=== PATIENT | male | born 1960 | race Caucasian/White ===

== ENCOUNTER 2019-01-13 15:04 | Emergency (ER) | payer OTHER ==
[2019-01-13] MEDS ORDERED: Ketorolac 60 MG/2 ML SDV IM ONE (15:47)
[2019-01-13] MEDS ORDERED: Cyclobenzaprine 10 MG Tab PO ONE (15:47)
--- NOTE | 2019-01-13 15:49 | EDM.PDOC ---
ED HPI GENERAL MEDICAL PROBLEM - General Chief Complaint: Back Pain or Injury Stated Complaint: BACK PAIN Time Seen by Provider: 01/13/19 15:45 Source of Information: Reports: Patient, Family, RN Notes Reviewed History Limitations: Reports: No Limitations - History of Present Illness INITIAL COMMENTS - FREE TEXT/NARRATIVE: 58-year-old gentleman presents to the emergency department today complaint of low back pain. He states he injured himself when he was moving furniture 2 days prior he has not tried any medications just use ice eating pad and of rib belt. Denies any loss of bowel or bladder no numbness and tingling in his predominantly on the right side - Related Data Allergies Allergy/AdvReac Type Severity Reaction Status Date / Time No Known Allergies Allergy Verified 01/13/19 15:29 Home Meds: Home Meds NK [No Known Home Meds] 01/13/19 [History] Past Medical History - Past Health History Medical/Surgical History: Denies Medical/Surgical History Social & Family History - Tobacco Use Smoking Status *Q: Current Every Day Smoker Years of Tobacco use: 40 Packs/Tins Daily: 1 ED ROS GENERAL - Review of Systems Review Of Systems: See Below GI/Abdominal: Reports: No Symptoms Musculoskeletal: Reports: Back Pain Neurological: Reports: No Symptoms ED EXAM,LOWER BACK PAIN/INJURY - Physical Exam Exam: See Below Exam Limited By: No Limitations General Appearance: Alert, WD/WN, No Apparent Distress Respiratory/Chest: No Respiratory Distress Back Exam: Normal Inspection, Decreased Range of Motion, Muscle Spasm, Paraspinal Tenderness. No: CVA Tenderness (R), CVA Tenderness (L), Vertebral Tenderness Course - Vital Signs Last Recorded V/S: Last Vital Signs Temp 96.2 F 01/13/19 15:33 Pulse 64 01/13/19 15:33 Resp 14 01/13/19 15:33 BP 126/68 01/13/19 15:33 Pulse Ox 96 01/13/19 15:33 - Orders/Labs/Meds Meds: Medications Discontinued Medications Generic Name Dose Route Start Last Admin Trade Name Freq PRN Reason Stop Dose Admin Cyclobenzaprine HCl 10 mg 01/13/19 15:47 01/13/19 15:51 Flexeril PO 01/13/19 15:48 10 mg ONETIME ONE Administration Ketorolac Tromethamine 60 mg 01/13/19 15:47 01/13/19 15:51 Toradol IM 01/13/19 15:48 60 mg ONETIME ONE Administration Departure - Departure Time of Disposition: 17:18 Disposition: Home, Self-Care 01 Condition: Fair Clinical Impression: Low back pain Qualifiers: Chronicity: acute Back pain laterality: right Sciatica presence: without sciatica Qualified Code(s): M54.5 - Low back pain - Discharge Information Referrals: PCP,None [Primary Care Provider] - Forms: ED Department Discharge Additional Instructions: Use ibuprofen for baseline pain control, use hydrocodone for breakthrough pain, use Flexeril as needed for muscle relaxants, Please followup with your primary care provider in 3-5 days if not better, please call return to the emergency department with worsening of symptoms. - Assessment/Plan Plan: Assessment Acuity = acute Site and laterality = low back pain Etiology = secondary lifting injury Manifestations = none Location of injury = Home Lab values = none Plan He had good improvement combination Toradol and Flexeril, he will be discharged home with Flexeril 10 mg by mouth 3 times a day when necessary total 15 and hydrocodone 5/325 one tablet by mouth 3 times a day when necessary total #10 This note was dictated using [employer] voice recognition software please call with any questions on syntax or grammar.
== END 2019-01-13 17:44 | disposition home or self-care (01) ==
LOC: JP.ED 15:04
DX: M54.5 Low back pain (principal); M62.830 Muscle spasm of back; F17.210 Nicotine dependence, cigarettes, uncomplicated
CPT/HCPCS: 96372; 99283; A9270; J1885